=== PATIENT | male | born 1955 | race Caucasian/White ===

== ENCOUNTER 2023-02-13 09:19 | Outpatient (AMB) | payer MEDICARE, SELFPAY ==
--- NOTE | 2023-02-13 09:20 | AM.OFFWIN_ITS ---
Intake Vital Signs 02/13/23 09:21 Height 5 ft 7 in Weight 195 lb BMI 30.5 BP 120/80 Blood Pressure Location Rt brachial Position Sitting Pulse 68 Pulse Source Pulse Oximeter Pulse Oximetry (%) 97 Oxygen Delivery Method Room Air Intake Visit Reasons: EP, bug bite left arm Intake Note: Patient here because he was stung by a bee on and states it has swelled up and now has blisters. Patient Tobacco Use Status: Current everyday Tobacco user Allergies No Known Allergies Allergy (Verified 02/13/23 09:33) Medication List - Last Reconciled 02/13/23 by Caroline Flores CNP atenolol 100 mg PO DAILY atorvastatin 20 mg PO DAILY hydrochlorothiazide 25 mg PO Q OTHER DAY Do you need a note to return to daycare/school/sports/work: No HPI HPI Comments History of Present Illness Details 67-year-old male presents to [facility] for complaint of left arm erythema, swelling, and blisters secondary to a bee sting on . He denies fever, chills, CP, SOB, dizziness, loss of sensation of left extremity, abdominal pain, nausea, vomiting, changes in bowels or bladder. [facility] Social History Patient Tobacco Use Status: Current everyday Tobacco user Review of Systems Const All systems reviewed & are unremarkable except as noted in HPI and below Physical Exam Vital Signs: Last Vital Signs Pulse 68 02/13/23 09:21 BP 120/80 02/13/23 09:21 Pulse Ox 97 02/13/23 09:21 Oxygen Delivery Method Room Air 02/13/23 09:21 BMI result Body Mass Index 30.5 Const General: healthy appearing and no acute distress Nutritional Appearance: well nourished Orientation/consciousness: patient oriented x3 Limitations: no limitations Eyes General: appearance normal, both eyes and all related structures Neck Neck: Yes normal visual inspection, Yes full ROM, Yes no lymphadenopathy and Yes supple Chest Chest palpation & inspection: normal inspection of the chest Resp Effort & Inspection: normal respiratory effort, no cough, no respiratory distress and not tachypneic Auscultation: clear to auscultation bilaterally Cardio Rate: regular rate Rhythm: regular rhythm Heart sounds: S1 normal heart sound present and S2 normal heart sound present Peripheral pulses: Peripheral pulses 2+ throughout GI Palpation (GI): Soft to palpation and nontender Auscultation: normal bowel sounds General: Yes no CVA tenderness Back/Spine/Pelvis Back: no CVA tenderness Skin Other: left upper extremity poorly demarcated, warm, erythematous area with associated edema and tenderness to palpation, inflammation of the deep dermis and surrounding subcutaneous tissue with multiple small blisters; cellulitis appearing. Neuro General: patient oriented x3, gait normal and moves all extremities Extrem Other: left upper extremity, poorly demarcated, warm, erythematous, small blisters, Strong Radial, ulna pulses palpated, no cyanosis or joint enlargement Psych Appearance: well kempt Mental Status: mental status grossly normal Speech and movement: Normal speech and movement present Affect: normal affect Attitude: cooperative Assessment & Plan Assessment & Plan (1) Cellulitis of left upper extremity: Comment: left upper extremity poorly demarcated, warm, erythematous area with associated edema and tenderness to palpation, inflammation of the deep dermis and surrounding subcutaneous tissue with multiple small blisters; cellulitis appearing. Code(s): L03.114 - Cellulitis of left upper limb Plan: 67-year-old male seen today for left upper extremity cellulitis secondary to bee sting 3 days ago. Will treat with Amoxicillin/clavulanate 875-125 mg po bid x 7 days; encouraged to take w/ food or milk to reduce GI upset. Prednisone 10 mg po bid x 5 days. Encouraged warm compresses to reduce swelling, and elevate left arm while sitting or sleeping to reduce swelling. Patient understands to return to office for worsening or unresolved symptoms, or to go to ER if he develops SOB, difficulty swallowing or breathing. Medications: New amoxicillin-pot clavulanate 875-125 mg 1 tab PO BID 14 tabs 0RF L03.90 - Cellulitis, unspecified prednisone 10 mg PO BID 5 days 10 tabs 0RF Coding Level of Care Code Est Pt Level 3 (01642) Diagnoses Cellulitis of left upper extremity L03.114
[2023-02-13 09:21] VITALS: BP 120/80; PULSE 68; O2SAT 97; BMI 30.5
== END 2023-02-13 09:55 | disposition home or self-care (01) ==
PROVIDERS: Visit Provider Nurse Practitioner Acute Care
DX: L03.114 Cellulitis of left upper limb (principal)
CPT/HCPCS: 99051; 99213

== ENCOUNTER 2023-11-24 08:01 | Outpatient (AMB) | payer MEDICARE, SELFPAY ==
--- NOTE | 2023-11-24 08:05 | AM.OFFWIN_ITS ---
Intake Vital Signs 11/24/23 08:06 Height 5 ft 7 in Weight 192 lb 8 oz BMI 30.1 BP 130/78 Blood Pressure Location Rt brachial Position Sitting Pulse 66 Pulse Source Pulse Oximeter Temp 98 F Temp Source Temporal Artery Scan Pulse Oximetry (%) 98 Intake Visit Reasons: EP needs ears drained Intake Note: pt is here for ear blockage Patient Tobacco Use Status: Current everyday Tobacco user Allergies No Known Allergies Allergy (Verified 11/24/23 08:06) Do you need a note to return to daycare/school/sports/work: No HPI HPI Comments History of Present Illness Details 68 y/o male patient who presents to walk in clinic with c/o bilateral ear blockage from Wax. [facility] [place] Social History Patient Tobacco Use Status: Current everyday Tobacco user Physical Exam Vital Signs: Last Vital Signs Temp 98 F 11/24/23 08:06 Pulse 66 11/24/23 08:06 BP 130/78 11/24/23 08:06 Pulse Ox 98 11/24/23 08:06 BMI result Body Mass Index 30.1 Const General: comfortable and no acute distress Nutritional Appearance: overweight Orientation/consciousness: patient oriented x3 HEENT Ears: external ears normal and TM abnormal obstructed by cerumen bilateral Neuro General: patient oriented x3, gait normal and moves all extremities Psych Speech and movement: Normal speech and movement present Office Procedures Cerumen Removal From which ear canal was the cerumen removed: bilateral Removal: irrigation Notes: patient tolerated procedure well [id number] Irrigation/Lavage Assessment & Plan Assessment & Plan (1) Cerumen impaction: Code(s): H61.20 - Impacted cerumen, unspecified ear Qualifiers: Laterality: bilateral Qualified Code(s): H61.23 - Impacted cerumen, bilateral Plan: In office Ear Lavage performed today, Pt tolerated procedure well. Advised Pt to continue using Debrox OTC BID x 10 days. F/U with PCP for ENT referral if not omproved. Coding Level of Care Code Est Pt Level 4 (59311) Diagnoses Bilateral impacted cerumen H61.23 Laterality: bilateral CPT Codes Office Procedure - CPT: 05053-Ocv Irrigation/Lavage ([id number]) Time Spent (min) 20
[2023-11-24 08:06] VITALS: BP 130/78; PULSE 66; TEMP 36.6; O2SAT 98; BMI 30.1
== END 2023-11-24 08:34 | disposition home or self-care (01) ==
PROVIDERS: Visit Provider Nurse Practitioner Family
DX: H61.23 Impacted cerumen, bilateral (principal)
CPT/HCPCS: 69209; 99214

== ENCOUNTER 2025-04-03 07:07 | Outpatient (AMB) | payer MEDICARE, SELFPAY ==
--- NOTE | 2025-04-03 07:17 | AM.OFFWIN_ITS ---
Intake Vital Signs 04/03/25 07:18 Height 5 ft 7 in Weight 194 lb BMI 30.4 BP 158/78 H Blood Pressure Location Lt brachial Position Sitting Pulse 73 Pulse Source Pulse Oximeter Pulse Oximetry (%) 95 Oxygen Delivery Method Room Air Intake Visit Reasons: EP-b/l ear block Intake Note: Patient presents c/o bilateral blocked ears x few months. Patient Tobacco Use Status: Current everyday Tobacco user Allergies No Known Allergies Allergy (Verified 04/03/25 07:19) HPI HPI Comments History of Present Illness Details History - The patient is a 69-year-old male pres enting with blocked ears due to ear wax accumulation. - Ear wax blockage is a recurring issue for the patient, occurring approximately once a year. - The patient has been using Debrox to m anage the ear wax, applied the day before the visit. - No history of ear infections related t o the wax buildup. 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 - He denies cold symptoms, CORDERO, dizziness , sore throat, cough, fever, or chills. Physical Exam General: Cooperative, healthy appearing, comfortable, no acute distress and well developed Head: Normal to inspection Ears: External ears normal bilaterally. No tragus or mastoid tenderness noted. Cerumen noted in the canals bilaterally. TM's not visualized. Face and sinus: Normal facial exam. No TTP of the sinuses. Neck: Normal visual inspection. Full ROM. No lymphadenopathy noted. Respiratory: Normal respiratory effort and able to speak in complete sentences. Clear to auscultation bilaterally. No w/r/r noted. Cardiac: RRR, no m/r/g noted. Normal S1 and S2 noted. No m/r/g noted. Skin: No rashes or lesions noted Neuro: Patient oriented x3 Patient was informed and verbally consented to the use of an ambient scribe for clinic note documentation during this visit. [facility] Social History Patient Tobacco Use Status: Current everyday Tobacco user Review of Systems Const All systems reviewed & are unremarkable except as noted in HPI and below Physical Exam Vital Signs: Last Vital Signs Pulse 73 04/03/25 07:18 BP 158/78 H 04/03/25 07:18 Pulse Ox 95 04/03/25 07:18 Oxygen Delivery Method Room Air 04/03/25 07:18 BMI result Body Mass Index 30.4 Office Procedures Cerumen Removal From which ear canal was the cerumen removed: bilateral Removal: irrigation Notes: patient tolerated procedure well, no complications and ear canal clear [id number] Irrigation/Lavage Assessment & Plan Assessment & Plan (1) Impacted cerumen: Code(s): H61.20 - Impacted cerumen, unspecified ear Qualifiers: Laterality: bilateral Qualified Code(s): H61.23 - Impacted cerumen, bilateral Plan Most likely cerumen impaction Plan - Ear irrigation will be performed to remove the impacted cerumen. - Continue with the debrox drops - follow up with PCP Orders: Orders AMB Cerumen Removal Today H61.23 - Impacted cerumen, bilateral Coding Level of Care Code Est Pt Level 3 (57831) Diagnoses Bilateral impacted cerumen H61.23 Laterality: bilateral CPT Codes Office Procedure - CPT: 27762-Djg Irrigation/Lavage ([id number])
[2025-04-03 07:18] VITALS: BP 158/78; PULSE 73; O2SAT 95; BMI 30.4
== END 2025-04-03 08:20 | disposition home or self-care (01) ==
PROVIDERS: Visit Provider Physician Assistant Medical
DX: H61.23 Impacted cerumen, bilateral (principal)

== ENCOUNTER → 2025-04-03 07:07 | Outpatient (BNVA) | payer MEDICARE, SELFPAY | PROVIDERS: Visit Provider Physician Assistant Medical | DX: H61.23 Impacted cerumen, bilateral (principal) | CPT/HCPCS: 69209; 99212 ==